=== PATIENT | male | born 1945 | race Caucasian/White ===

== ENCOUNTER → 2021-02-19 | Outpatient (CLI) | payer MEDICARE ==
[~2021-02-19] MED LIST: AMLO10TA4 PO; LISI-167 PO; No meds per pt.
== END | disposition home or self-care (01) ==
LOC: CVU 14:31
PROVIDERS: ATTEND Genetic Counselor, MS
DX: I08.8 Other rheumatic multiple valve diseases (principal); I10 Essential (primary) hypertension
CPT/HCPCS: 93306